=== PATIENT | male | born 1960 | race Caucasian/White ===

== ENCOUNTER 2016-10-13 16:17 | Emergency (ER) | payer MEDICARE, OTHER ==
--- NOTE | 2016-10-13 19:57 | ERNOTE ---
<Dereck Murrieta - Last Filed: 10/14/16 00:26> Lower Extremity HPI - General Time Seen by Provider: 10/13/16 19:55 - Immun/Allergies/Home Medications Immunizations: IMMUNIZATION HX Immunizations Up to Date Yes History of Influenza Vaccine Yes Hx Pneumococcal Vaccination Yes Allergies/Adverse Reactions: Allergies Allergy/AdvReac Type Severity Reaction Status Date / Time No Known Allergies Allergy Unverified 10/13/16 16:58 Home Medications: HOME MEDICATIONS Benazepril HCl 20 mg PO DAILY 10/13/16 [Last Taken Unknown] Insulin Glargine,Hum.rec.anlog [Lantus Solostar] 15 unit SQ DAILY 10/13/16 [ Last Taken Unknown] Simvastatin [Zocor] 40 mg PO HS 10/13/16 [Last Taken Unknown] Tramadol HCl [Rybix Odt] 50 mg PO BID 10/13/16 [Last Taken Unknown] glipiZIDE [Glipizide] 10 mg PO BID 10/13/16 [Last Taken Unknown] metFORMIN HCL [Glucophage] 800 mg PO TID 10/13/16 [Last Taken Unknown] HYDROcodone/ACETAMINOPHEN [[place] 5-325] 1 each PO Q6H PRN #20 tablet 10/14/16 [ Last Taken Unknown] ED Progress - Vital Signs Vital Signs: Vital Signs 10/13/16 16:52 Temperature 36.6 C Pulse Rate 84 Respiratory 16 Rate Blood Pressure 151/86 O2 Sat by Pulse 97 Oximetry - Progress/Reassessment Chief Complaint: Lower Extremity Pain/ Injury Progress Note-Subjective: 10/13/16 22:47 Given Dilaudid 0.5 mg IM. Plain x-rays of the hip and knee were unremarkable. 10/14/16 00:26 Given Dilaudid 0.5 mg IM with good relief of the pain. The etiology of the pain is unclear at this time and will need further investigation by his primary care physician. Procedures Ultrasound: normal Comments: NO DVT Departure Clinical Impression: Right thigh pain - Departure Disposition: Home self-care Condition: Good Instructions: Sciatica, [id number] Print Language: Puerto Rican Additional Instructions: Follow up with your doctor next week. If the pain worsens return to the ED. Referrals: Stephie Doty CNP [Primary Care Provider] - Prescriptions: HYDROcodone/ACETAMINOPHEN [[place] 5-325] 1 each PO Q6H PRN #20 tablet PRN Reason: Pain <Marco Mejia - Last Filed: 10/14/16 08:00> Lower Extremity HPI - Narrative Date of Service: 10/13/16 - General Lower Extremities Pain: leg: right, knee: right, thigh: right Source: patient, family - BROTHER Exam Limitations: no limitations - Immun/Allergies/Home Medications Immunizations: IMMUNIZATION HX Immunizations Up to Date Yes History of Influenza Vaccine Yes Hx Pneumococcal Vaccination Yes - History of Present Illness Narrative: PT C/O OF PAIN TO RIGHT LEG EVER SINCE Sunday. HE CAN NOT RECALL ANY FALL OR TWISTING OR UNUSUAL ACTIVITY. He says he has never had any thing like this in past. He has had left bka for the past 5 years but does not think he has had more stress on the right because of that. He has not noted any swelling or deformity. 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 He has not taken anything extra for the soreness but is on chronic tramadol 2-3 times /day and MAME. Review of Systems - Review of Systems Constitutional: Present: See HPI Musculoskeletal: Present: See HPI Skin: Present: no symptoms reported Neurological: Present: no symptoms reported Psych: Present: no symptoms reported All Other Systems: All systems neg except as marked - Patient's Past Medical History Patient History - Medical: Cataracts, Diabetes Type 2, Other Patient History - Cardiac/Respiratory: Hypertension, Hyperlipidemia Patient History - Cancer: No Hx of Cancer Patient History - Surgical Procedures: Cataracts, Cholecystectomy, Other, Orthopedic - left BKA 2011. Patient History - Other: None - Social History Living Situations: alone Abuse History: No History of abuse Psych History: No pertinent hx Smoking Status: Never smoker Alcohol Use: none Drug Use: none - Immunizations Immunizations Up to Date: Yes Hx Pneumococcal Vaccination: Yes History of Influenza Vaccine: Yes Physical Exam - Physical Exam General Appearance: Present: wd/wn, alert, no apparent distress Peripheral Pulses: N=norm/S=strong/W=weak/B=bound/A=absent: Femoral (R): Normal , Dorsalis-pedis (R): Normal Extremity Exam: Present: normal inspection, normal range of motion, no edema. Absent: calf tenderness - calf not tender but he is tender to soft tissue of mid femur when squeezed gently. He has no swelling there or any ropiness or erythema or increased heat to that area. There is not rash. R knee equal no pain with palpation and no knee joint crepitus or instability. He has good passive rom of right hip jt. Pt has good sensation and distal pulses and femodral pulses on the right with good distal refill . No sign of right leg sore. He does have chronic 2 cm lilian. callus to proximal ant. right knee joint that is non tender. Neurological Exam: Present: alert, oriented DTR: N=norm/NB=norm/brisk/A=abs/DD=dull/dimin/HC=hyperactive: Knee (R): Normal Skin Exam: Present: normal color, warm/dry ED Progress - Vital Signs Vital Signs: Vital Signs 10/13/16 16:52 Temperature 36.6 C Pulse Rate 84 Respiratory 16 Rate Blood Pressure 151/86 O2 Sat by Pulse 97 Oximetry - Transfer of Care Physician Sign Out: Marco Mejia Receiving Physician: Dereck Murrieta Pending Results: X-ray results - follow up us results Expected Disposition: Discharge
--- OUTSIDE RECORDS SUMMARY | 2016-10-13 20:11 | XMS REPORT | Continuity of Care Document ---
:1960 Author Organization [facility] ([facility]) Address [address] [place] [address] Phone [phone] Care Team Providers Name Role Phone Sim Barragan Primary Care Provider [phone] Source Comments This disclosure is being made pursuant to the Care Everywhere program, applicable federal and state laws, and may not contain all informaitonavailable regarding this patient.[facility] ([facility]) Active Allergies and Adverse Reactions No Known Allergies Current Medications Prescription Sig. Disp. Refills Start End Status Date Date Cholecalciferol, Vitamin take 1 Cap by Active D3, (VITAMIN D) 2,000 unit mouth daily. Cap blood glucose meter (BLOOD 1 Device. Dispense 1 Each 0 08/12/19 Active GLUCOSE MONITOR SYSTEM) patient's 10 Kit preferred brand, Indications: Diabetes Mellitus CARBOXYMETHYLCELLULOSE Instill onto the Active SODIUM (REFRESH TEARS eye. OPHTH) SUPPLY lancets For use with 100 Each 12/25/19 Active patient's 12 glucometer. Dispense patient's preference. Indications: DIABETES MELLITUS SUPPLY insulin syringe w/ 1 Syringe daily. 100 Syringe 08/01/19 Active needle U-100 (INSULIN Indications: 13 SYRINGE) 1 mL 29 x 1/2" DIABETES MELLITUS OTHER Equate PM Active ascorbic acid (VITAMIN C) Take 500 mg by Active 500 mg tablet mouth daily. OTHER Drug study - Active Dapagliflozin 10 mg or placebo docusate 100 mg capsule Take 1 Cap (100 mg 60 Cap 3 11/11/19 Active total) by mouth 2 15 times daily traZODone 50 mg tablet Take 1 tablet (50 90 tablet 3 10/19/19 Active mg total) by mouth 16 at bedtime. SUPPLY blood glucose 3 Strips daily. 300 Strip 12/23/19 Active (BLOOD GLUCOSE) test Dispense patient's 16 strips preferred brand, Freestyle lite. Dx code: E11.65. Pt takes Insulin benazepril 20 mg tablet Take 1 tablet (20 90 tablet 3 1020/20 Active mg total) by mouth 16 daily. glipiZIDE 10 mg tablet Take 1 tablet (10 180 tablet 3 10/20/20 Active mg total) by mouth 16 2 times daily. metFORMIN 850 mg tablet Take 1 tablet (850 270 tablet 3 1020/20 Active mg total) by mouth 16 3 times daily. traMADol 50 mg tablet Take 1 tablet (50 70 tablet 5 20/20 Active mg total) by mouth 16 every 6 hours as needed. simvastatin 40 mg tablet Take 1 tablet (40 90 tablet 3 04/20/20 Active mg total) by mouth 16 every evening. insulin glargine (LanTUS) Inject 15 Units 20 mL 11 04/20/20 Active 100 unit/mL injection vial subcutaneously 16 daily with lunch. gabapentin 800 mg tablet Take 1 tablet (800 270 tablet 3 04/20/20 Active mg total) by mouth 16 3 times daily. Active Problems Problem Noted Date Dental caries 10/19/2015 Trigger finger, right 11/24/2014 Carpal tunnel syndrome 08/14/2013 Pre-operative cardiovascular examination 07/29/2013 Bilateral hand numbness 07/25/2013 Cubital tunnel syndrome 07/25/2013 Paresthesias in left hand 05/14/2013 Trigger finger (acquired) 05/14/2013 Hyperlipemia 12/25/2011 Old myocardial infarction, no symptoms and negative per history, Anterior Q waves on EKG Osteomyelitis 10/13/2011 Pseudophakia OU 09/13/2010 Proliferative diabetic retinopathy of both eyes 06/18/2009 Diabetes mellitus type II, uncontrolled 05/18/2009 Immunizations Name Dates Previously Given Next Due Influenza, PF 04/11/2012 Influenza, quadrivalent PF 04/06/2016 Influenza, unspecified 05/02/2013,05/02/2011,06/16/2004,05/03 Pneumococcal Conjugate, PCV13 (Prevnar 09/08/2014 13) Pneumococcal Polysaccharide, PPSV23 02/02/2005 (Pneumovax 23) Td, adult unspecified 02/02/2005 Tdap 08/01/2012 Social History Tobacco Use Types Packs/Day Years Used Date Never Smoker Smokeless Tobacco: Never Used Tobacco Cessation:Counseling Given: Yes Comments: Alcohol Use Drinks/Week oz/Week Comments No Last Filed Vital Signs Vital Sign Reading Time Taken Blood Pressure 136/88 04/20/2016 12:40 PM CDT Pulse 89 04/20/2016 12:40 PM CDT Temperature 35.9 C (96.6 F) 04/20/2016 12:40 PM CDT Respiratory Rate 16 02/09/2015 10:09 AM CDT Height 1.83 m (6' 0.05") 02/09/2015 10:09 AM CDT Weight 110.2 kg (242 lb 15.2 oz) 04/20/2016 12:40 PM CDT Body Mass Index 32.91 04/20/2016 12:40 PM CDT Oxygen Saturation 100% 11/10/2014 9:30 AM CDT Plan of Care Patient Goal Type Goal Weight Weight below 99 kg (218 lb) Result Component % HBA1C below 7.0 Date Type Specialty Providers Description 10/26/2016 Appointment Dentistry Chief Comp: Patient Reported Reason For Visit 10/26/2016 Appointment Family Practice Sim Barragan, Chief Comp: Patient MD Reported Reason For [address] [place] [address] [phone] (Fax) 02/09/2017 Appointment Ophthalmology - Juno Mondragon, Chief Comp: Patient Specialty MD Reported Reason For [address] [place] [address] [phone] (Fax) Health Maintenance Due Date Last Done Comments Hepatitis B Vaccine (1 of 3 - 1960 Primary Series) MMR Vaccine 1978 Colonoscopy 03/27/2008 Prostate Cancer Screening 08/01/2014 08/01/2012, 05/11/2009 DIABETIC: Hemoglobin A1C 04/19/2016 10/19/2015, Additional history exists 05/11/2015, 02/09/2015 HCC Annual Coding Paraplegia 07/02/2016 DIABETIC: Cholesterol 10/18/2016 10/19/2015, Additional history exists 09/08/2014, 04/22/2013 DIABETIC: Foot Exam 10/18/2016 10/19/2015, Additional history exists 10/19/2015, 09/08/2014 Diabetic: Hdl 10/18/2016 10/19/2015, Additional history exists 09/08/2014, 04/22/2013 Diabetic: Ldl 10/18/2016 10/19/2015, Additional history exists 09/08/2014, 04/22/2013 DIABETIC: Microalbumin 10/18/2016 10/19/2015, Additional history exists 09/08/2014, 12/25/2013 DIABETIC: Triglycerides 10/18/2016 10/19/2015, Additional history exists 09/08/2014, 04/22/2013 DIABETIC: Retinal Eye Exam 03/31/2017 03/31/2016, Additional history exists 07/17/2013, 07/17/2013 Td Vaccine 08/01/2022 08/01/2012, 02/02/2005 Tdap Vaccine Completed 08/01/2012 HCV Screening Completed 09/08/2014 Pneumococcal Vaccine Completed 09/08/2014, 02/02/2005 Influenza Vaccine: Seasonal Completed 04/06/2016, Additional history exists 04/10/2015, 05/02/2013 Results from Last 3 Months Not on file
--- OUTSIDE RECORDS SUMMARY | 2016-10-13 20:11 | XMS REPORT | Continuity of Care Document ---
:1960 Author Organization [facility] [place] [address] Care Team Providers Name Role Phone Sim Barragan Primary Care Provider [phone] Source Comments This disclosure is being made pursuant to the [email or web address] program and maynot contain all information available regarding this patient.[facility] Active Allergies and Adverse Reactions No Known Allergies Current Medications Be aware that medications may not be up to date as of this document. Alwaysverify current medications with the patient. Prescription Sig. Disp. Refills Start Date End Date Status Unclassified (NON Metforminglipi-zid Active FORMULARY) eBenazeprilSimvast atinGabapentinTram adolTrazodoneEquat e PM Active Problems Not on file Social History Tobacco Use Types Packs/Day Years Used Date Never Smoker Alcohol Use Drinks/Week oz/Week Comments Yes occ Last Filed Vital Signs Vital Sign Reading Time Taken Blood Pressure 142/86 01/28/2013 8:26 PM CDT Pulse 78 01/28/2013 8:26 PM CDT Temperature 36.8 C (98.2 F) 01/28/2013 6:56 PM CDT Respiratory Rate 16 01/28/2013 8:26 PM CDT Height 1.829 m (6') 01/28/2013 6:56 PM CDT Weight 108.863 kg (240 lb) 01/28/2013 6:56 PM CDT Body Mass Index 32.54 01/28/2013 6:56 PM CDT Oxygen Saturation 98% 01/28/2013 8:26 PM CDT Plan of Care Health Maintenance Due Date Last Done Comments Tetanus/Pertussis (1 - Tdap) 1977 Colonoscopy 2008 Well Adult Visit 2008 Retired-INFLUENZA VACCINE 03/02/2016 Results from Last 3 Months Not on file
[2016-10-13] MEDS ORDERED: IBUPROFEN 400 MG TABLET PO ONE (20:29)
[2016-10-13] MEDS ORDERED: IBUPROFEN 400 MG TABLET ONE (20:30)
[2016-10-13] MEDS ORDERED: HYDROmorphone HCL 1 MG/ML DISP.SYRIN IM ONE (22:46)
[2016-10-13] MEDS ORDERED: HYDROmorphone HCL 1 MG/ML DISP.SYRIN ONE (22:49)
[2016-10-14] MEDS ORDERED: HYDROcodone/ACETAMINOPHEN 1 EACH TABLET PO ONE (00:29)
[2016-10-14] MEDS ORDERED: HYDROcodone/ACETAMINOPHEN 1 EACH TABLET ONE (00:30)
[2016-10-14 00:36] VITALS: BP 145/90
== END 2016-10-14 00:44 | disposition home or self-care (01) ==
LOC: ER 16:17
DX: M79.651 Pain in right thigh (principal); I10 Essential (primary) hypertension; E78.5 Hyperlipidemia, unspecified; E11.9 Type 2 diabetes mellitus without complications